=== PATIENT | male | born 1955 | race Caucasian/White ===

== ENCOUNTER 2018-01-19 15:15 | Emergency (ER) | payer OTHER ==
[~2018-01-19] VITALS: Ht 182.9 cm; Wt 93.0 kg
[2018-01-19 15:47] VITALS: BP 123/80
[2018-01-19] MEDS ORDERED: DEBROX15 M1 LEFT EAR (16:08)
--- NOTE | 2018-01-19 16:08 | Emergency Room Report ---
History of Present Illness General Chief Complaint: Earache Source: Patient Present Illness HPI 62-year-old male patient presents to ER complaining of left ear pain and itchiness 1 day. Patient reports a history of excessive cerumen in ears. Patient reports that he usually goes to his primary care provider to have his ears washout. Patient denies nausea, vomiting, chest pain, shortness of breath. Patient denies vision loss, vertigo, dizziness. Patient denies other symptoms. Patient reports using Q-tips at home. Allergies: Coded Allergies: No Known Allergies (Unverified , 01/19/18) Patient History Past Medical History: see triage record Reviewed Nursing Documentation: PMH: Agreed; PSxH: Agreed Nursing Documentation-PMH Past Medical History: No Stated History Review of Systems All Other Systems: negative except mentioned in HPI Physical Exam Vital Signs Date Time Temp Pulse Resp B/P (MAP) Pulse Ox O2 Delivery O2 Flow Rate FiO2 01/19/18 15:37 77 18 123/80 95 Room Air Sp02 EP Interpretation: reviewed, normal General Appearance: well appearing, no apparent distress, alert, GCS 15, non- toxic Head: normocephalic, atraumatic Eyes: bilateral eye normal inspection, bilateral eye PERRL ENT: hearing grossly normal, normal pharynx, no angioedema, normal voice, TMs + canals normal, uvula midline, moist mucus membranes, other - excessive cerumen in right ear Neck: full range of motion Respiratory: lungs clear, normal breath sounds, no rhonchi, no respiratory distress, no accessory muscle use, no wheezing, speaking full sentences Cardiovascular #1: regular rate, rhythm, no edema Musculoskeletal: back normal, digits/nails normal, gait/station normal, normal range of motion, non-tender Neurologic: alert, oriented x3, responsive, motor strength/tone normal, sensory intact Psychiatric: mood/affect normal Skin: no rash - no blisters, no vesicles Lymphatic: no adenopathy Medical Decision Making PA Attestation Dr. Roberts is my supervising Physician whom patient management has been discussed with. Diagnostic Impression: Primary Impression: Impacted cerumen of left ear ER Course Pt presents to ED c/o cough and flu-like symptoms. DDX considered but are not limited to viral URI, sinusitis, otitis externa, otitis media. VITAL SIGNS are WNL, patient is afebrile. Ordered hydrogen peroxide. ER COURSE: PE shows excessive cerumen within the left ear, no vesicles outside ear, no rash. Ear cleaned by hydrogen peroxide and water. Following removal of cerumen, PE shows normal TM, no perforation, normal light reflex, small amount of blood present following procedure. Blood likely due to tissue injury from cerumen removal. No active bleeding, ear canal clear. Patient tolerated procedure well. Patient reports symptoms improved following procedure. Informed patient to followup with primary care provider and discuss referral to ENT due to recurrence of symptoms. Do not use Q-tips. DISCHARGE: -Rx provided for Debrox At this time pt is stable for d/c to home. Patient is resting comfortably, in no acute distress nontoxic appearing, talking without difficulty. Patient to take medications as instructed Will provide with patient care instructions and any necessary prescriptions. Care plan and follow-up instructions provided. Patient instructed to follow-up with primary care provider in 3 - 5 days. Patient questions asked and answered. Reports understanding and agreement to treatment plan. ER precautions given. Patient instructed to return to ER immediately for any new or worsening of symptoms including but not limited to increasing SOB, persistent fever. - Please note that this Emergency Department Report was dictated using [employer] dri[employer] technology software, occasionally this can lead to erroneous entry secondary to interpretation by the dictation equipment. Last Vital Signs Date Time Temp Pulse Resp B/P (MAP) Pulse Ox O2 Delivery O2 Flow Rate FiO2 01/19/18 15:37 77 18 123/80 95 Room Air Disposition: HOME, SELF-CARE Condition: Stable Scripts Carbamide Peroxide (DEBROX) 15 Ml Drops 10 DROP LEFT EAR TWICE A DAY for 4 Days, ML 0 Refills Prov: Segun Bazzi 01/19/18 Patient Instructions: Cerumen Impaction Additional Instructions: Followup with primary care provider in 3 -5 days. Discuss referral to ENT due to recurrence of ear symptoms. Take medications as directed. Patient questions asked and answered. ER precautions given, patient instructed to return to ER immediately for any new or worsening of symptoms. Segun Bazzi Jan 19, 2018 16:08
[2018-01-19] MEDS ORDERED: Hydrogen Peroxide 473ml Bottle TOPIC ONE ×2 (16:11→16:15)
[2018-01-19 17:15] VITALS: BP 126/85
[2018-01-19 17:25] VITALS: BP 126/85
== END 2018-01-19 17:30 | disposition home or self-care (01) ==
LOC: EMR 16:50
DX: H61.22 Impacted cerumen, left ear (principal)
CPT/HCPCS: 99283